=== PATIENT | female | born 1975 | race Caucasian/White ===

== ENCOUNTER 2017-01-21 07:00 | Outpatient (RCR) | payer OTHER, SELFPAY ==
--- NOTE | 2017-01-23 13:56 | HP.PTEVAL_ITS ---
Patient's Visit Information ELIAZAR SORENSEN is a 41 year old F referred to Physical Therapy by Yahaira Banks with a diagnosis of R shoulder tendinosis. Date of Evaluation: 01/21/17 Physical Therapist: Nathan Hernandez - Visit Plan Frequency: 2x /Week Duration: 4-6 Weeks Plan: Start with joint mobilizations, US/DN, PROM stretching. Progressing to consistent HEP. - Subjective Subjective: Pt. is here today for her initial evaluation with diagnosis of R shoulder tendinosis. She is a plesant 42 y.o. female who reports having increased R shoulder pain and stiffness for ~2 months. She denies mechanism of injury, but has progressively become worse. She reports no pain at rest, but difficulty raising R arm over her head making most ADLs and work activiteis difficult. Pt. has not had an imaging done to her arm and reports no N/T in her arm. Pt. denies difficulty iwth activities below the level of her shoulder. 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 She reports overall her mobility in her R shoulder has become wore and worse to a point that is effecting her everyday life. Pt. is hopeful to reduce symptoms and increase mobility in order to get back to all recreational and work activiteis without issues. - Pain R shoulder Pain Intensity (Out of 10): 0 Pain Intensity Range: 0, 6 Comment: pain increases with raising UE over head. - Objective POSTURE: Pt. has slight protracted R scapulea, slight bilateral winging. Pt. has normal AC joint heights and shoulder is in normal positioning. PALPATION: Pt. has no pain to firm palpation throughout subacromial space. Pt. has slight tenderness at sub scap via axilla, but no pain else where. NEUROLOGICAL: Pt. has normal biceps and triceps DTR bilaterally. Pt. has normal sensation to light and sharp touch. ROM: L shoulder- full ROM without increase in symptoms. PROM- R shoulder- flexion 120deg, abd 89deg, ER at 45deg of abd 22deg, IR at 45deg of abd 15deg. AROM- R shoulder- flexion 108deg, abd 78deg, fuctional ER- external auditory meatus with abherrant motions, functional IR- greater trochanter. MMT- L shoulder- 5/5 throughout. L shoulder- flexion 4+/5 NE, abd 4/5 mild increase NW, ext 5/5 NE, ER 4/5 NE, IR 4+/5 NE. Pt. has normal elbow strength 5/5 bilaterally NE. - Special Tests R Shoulder Lift Off Test - Subscapular Tear: Negative R Shoulder Empty Can - SS: Negative R Shoulder Belly Press - SupScap: Negative R Shoulder Neer - Impingement: Positive R Shoulder Hurd Regan - Impingement: Positive R Shoulder Biceps Load Test - Labrum: Negative R Shoulder Apprehension Test - Anterior Instability: Negative R Shoulder Speeds Test - Labrum/Biceps: Negative R Shoulder Shrug Sign - OA/Adhesive Capsulitis: Positive - Goals Goal 1:: Pt. to be I with HEP. Goal Time Frame: 4-6 Weeks Goal 2:: Pt. to have increased R shouler mobility symmetrical to L allowing fo rincreased tolerance to all work and recreational activities. Goal Time Frame: 6-8 Weeks Goal 3:: Pt. to resume all work and recreational activities with out limitation or increase in symptoms. Goal Time Frame: 6-8 Weeks Goal 4:: Pt. to sleep without increase in R shoulder symptoms. Goal Time Frame: 4-6 Weeks Goal 5:: Pt. to have 5/5 R shoulder strength allowing for increase ability to complete all work activities. Goal Time Frame: 6-8 Weeks - Rehabilitation Potential Physical Therapy Diagnosis: Pt. has signs and symptoms consistent with R shoulder adhesive capsulitis. Pt. has + shrug sign and has a consistent capsular pattern loss of motion. Pt. has minimal effects with strength testing, but has significant loss in mobility of her R shoulder. Pt. would benefit from PT to increase ROM, joint mobility to increase tolerance to all recreational and work activities. Rehabilitation Potential: Good - Anticipated Interventions Patient/Client Instruction: Educate patient on: Condition, Plan of Care, Risk Factors, Benefits of Fitness Program For the Purpose of:: To reduce risk of recurrence, To improve safety, To improve health and function, To foster healthy habits, To improve decision making, To facilitate caregiver knowledge, To improve self management, To prevent re-injury, To improve ability to perform tasks related to life management Therapeutic Exercise to Include: Strength training, Power training, Postural training, Flexibilty training, Passive ROM, Active ROM, Scapular Strength/ Stabilization For the Purpose of:: To decrease pain, To increase ROM, To improve nutrient delivery to tissue, To increase oxygenation perfusion, To improve muscle performance and motor function, To improve health of tissue, To decrease soft tissue restriction, To increase flexibility/ROM Manual Therapy Techniques to Include: Mobilization, Passive ROM, Functional dry needling, Soft tissue mobilization For the Purpose of:: To decrease pain, To increase ROM, To improve nutrient delivery to tissue, To improve muscle performance and motor function, To improve health of tissue, To decrease soft tissue restriction, To increase flexibility/ROM Ultrasound (thermal/non thermal): Yes For the Purpose of:: To decrease swelling/inflammation, To increase ROM Thank you for the opportunity to evaluate your patient. For Medicare and Medicare HMO plans, please review the plan of care and approve it. It will need to be FAXED BACK to us at [phone] for Medicare purposes. Please let me know if there are questions or concerns regarding this plan of care. Physician Signature: Date:
--- NOTE | 2017-07-11 14:48 | HP.PTDCNRP_ITS ---
HP - Discharge Summary (1) - Patient Information ELIAZAR SORENSEN was seen in my office for initial evaluation on 01/21/17. The following Plan of Care was established for this patient: Initial Frequency: 2x /Week Initial Duration: 4-6 Weeks - Anticipated Interventions Patient/Client Instruction: Educate patient on: Condition, Plan of Care, Risk Factors, Benefits of Fitness Program For the Purpose of:: To reduce risk of recurrence, To improve safety, To improve health and function, To foster healthy habits, To improve decision making, To facilitate caregiver knowledge, To improve self management, To prevent re-injury, To improve ability to perform tasks related to life management Therapeutic Exercise to Include: Strength training, Power training, Postural training, Flexibilty training, Passive ROM, Active ROM, Scapular Strength/ Stabilization For the Purpose of:: To decrease pain, To increase ROM, To improve nutrient delivery to tissue, To increase oxygenation perfusion, To improve muscle performance and motor function, To improve health of tissue, To decrease soft tissue restriction, To increase flexibility/ROM Manual Therapy Techniques to Include: Mobilization, Passive ROM, Functional dry needling, Soft tissue mobilization For the Purpose of:: To decrease pain, To increase ROM, To improve nutrient delivery to tissue, To improve muscle performance and motor function, To improve health of tissue, To decrease soft tissue restriction, To increase flexibility/ROM Ultrasound (thermal/non thermal): Yes For the Purpose of:: To decrease swelling/inflammation, To increase ROM This patient was last seen in our office 01/21/17. Pertinent comments regarding their Physical therapy will appear below: Pt. was seen for her frozen shoulder. Pt. was seen for 2 visits and was to trial exercises on own. Pt. has not been back to Pt in ~5 months and will be DC from PT at this point in time. At this point I will be discontinuing this patient from physical therapy. I would be happy to see this patient again in the future if found appropriate by the physician. Thank you! Nathan Hernandez
== END 2017-01-21 19:00 | disposition home or self-care (01) ==
LOC: PT 15:50
PROVIDERS: Family Provider Internal Medicine; PCP Internal Medicine; Visit Provider Internal Medicine
DX: M75.01 Adhesive capsulitis of right shoulder (principal)
CPT/HCPCS: 97110; 97161

== ENCOUNTER → 2019-01-02 07:09 | Outpatient (CLI) | payer OTHER, SELFPAY ==
--- NOTE | 2019-01-02 07:12 | BI_ITS ---
MAMMOGRAPHY - BILATERAL SCREENING REASON FOR EXAM: Female, 43 years old. Routine annual screening examination. PERTINENT HISTORY: Sister with breast cancer. TECHNIQUE: Digital bilateral breast duane (3D mammographic acquisition) in the CC and MLO projections. 2-D mediolateral oblique (MLO) and craniocaudad (CC) views of both breasts were obtained. CAD: Full Field Digital Mammography with Computer Added Detection was performed. COMPARISON: Comparison is made with prior examination dated September 26, 2017. FINDINGS: Breast Composition: The breasts are extremely dense, which lowers the sensitivity of mammography. There are no dominant masses or suspicious calcifications. There is a 6.1 mm well-defined nodule in the axillary region of the left breast suggestive of a small lymph node. No other significant abnormalities are identified. There has been no significant change since the prior study. BI/SCREEN MAMM (CAD) W/DUANE BILAT IMPRESSION: Stable bilateral screening mammogram. Yearly follow-up mammogram recommended. (A) ASSESSMENT CATEGORY: BIRADS Category 2: Benign. A letter regarding these results will be sent to the patient by the facility within 30 days. Approximately 10% of breast cancers are not detected by mammography. A normal mammogram should not delay biopsy of a clinically suspicious abnormality. [id number] Electronically Signed: Gibson Farrell, at 8:49 EDT , Service support ,
== END ==
PROVIDERS: Family Provider Internal Medicine; PCP Internal Medicine; Referring Provider Nurse Practitioner Family; Visit Provider Nurse Practitioner Family
DX: Z12.31 Encounter for screening mammogram for malignant neoplasm of breast (principal)
CPT/HCPCS: 77063; 77067

== ENCOUNTER → 2023-01-11 | Outpatient (CLI) | payer OTHER, SELFPAY ==
--- NOTE | 2023-01-11 14:48 | BI_ITS ---
MAMMOGRAPHY - BILATERAL SCREENING REASON FOR EXAM: Female, 47 years old. Routine annual screening examination. PERTINENT HISTORY: Sister with breast cancer. TECHNIQUE: Digital bilateral breast duane (3D mammographic acquisition) in the CC and MLO projections. 2-D mediolateral oblique (MLO) and craniocaudad (CC) views of both breasts were obtained. CAD: Full Field Digital Mammography with Computer Added Detection was performed. COMPARISON: Comparison made with prior study January 02, 2019 and March 29, 2017. FINDINGS: Breast Composition: The breasts are extremely dense, which lowers the sensitivity of mammography. There are no dominant masses or suspicious calcifications. Stable 6.1 mm nodule in the axillary region of the left breast in keeping with her small benign-appearing left. No other significant abnormalities are identified. There has been no significant change since the prior study. BI/SCRN MAMM (CAD)W/DUANE BILAT IMPRESSION: Stable bilateral screening mammogram. Yearly follow-up mammogram recommended. (A) ASSESSMENT CATEGORY: BIRADS Category 2: Benign. A letter regarding these results will be sent to the patient by the facility within 30 days. Approximately 10% of breast cancers are not detected by mammography. A normal mammogram should not delay biopsy of a clinically suspicious abnormality. [id number] Electronically Signed: Gibson Farrell MD at 8:26 EST ,
== END | disposition home or self-care (01) ==
LOC: OPBI 14:46
PROVIDERS: PCP Internal Medicine; Visit Provider Nurse Practitioner Family
DX: Z12.31 Encounter for screening mammogram for malignant neoplasm of breast (principal)
CPT/HCPCS: 77063; 77067

== ENCOUNTER 2023-06-14 16:11 | Emergency (ER) | payer OTHER, SELFPAY ==
[2023-06-14 16:13] VITALS: BP 156/92; PULSE 108; RESP 20; TEMP 36.5; O2SAT 99; BMI 22.8
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
[2023-06-14 17:00] VITALS: BP 125/79; PULSE 86; RESP 17
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
[2023-06-14 18:00] VITALS: BP 144/84; PULSE 93; RESP 16; O2SAT 100
[2023-06-14 19:00] VITALS: BP 133/92; PULSE 114; RESP 22; TEMP 36.8; O2SAT 98
[2023-06-14 19:03] LABS: Hematocrit 41.8 % (37-47); Hemoglobin 13.6 g/dL (12.0-15.0); Mean Corp Hgb Conc 32.5 g/dL (32-36); Mean Corpuscular Hgb 30.2 pg (27.0-32.0); Mean Corpuscular Volume 92.7 fL (81-99); Platelet Count 136 K/mm3 (150-450); RBC Distribution Width CV 11.9 % (11.6-14.6); RBC Distribution Width SD 40.6 fl (35.1-43.9); Red Blood Count 4.51 M/mm3 (4.2-5.4); White Blood Count 7.6 K/mm3 (4.4-11.0)
== END 2023-06-14 19:17 | disposition home or self-care (01) ==
PROVIDERS: Emergency Provider Emergency Medicine; PCP Internal Medicine; Visit Provider Emergency Medicine
DX: S16.1XXA Strain of muscle, fascia and tendon at neck level, initial encounter (principal); S63.502A Unspecified sprain of left wrist, initial encounter; S80.11XA Contusion of right lower leg, initial encounter; Y92.410 Unspecified street and highway as the place of occurrence of the external cause; V43.52XA Car driver injured in collision with other type car in traffic accident, initial encounter
CPT/HCPCS: 72125; 73110; 73590; 85027; 99283; A4216

== ENCOUNTER → 2023-06-23 | Outpatient (CLI) | payer OTHER, SELFPAY ==
--- NOTE | 2023-06-23 14:00 | VDLE_ITS ---
Reason For Study: RLE Swelling RIGHT LEFT GSV is normal. CFV is compressible, spontaneous, phasic, CFV is compressible, spontaneous, phasic, competent, and demonstrates normal competent and demonstrates normal augmentation. augmentation. FV is compressible, spontaneous, phasic, competent and demonstrates normal augmentation. POP V is compressible, spontaneous, phasic, competent and demonstrates normal augmentation. T/P Trunk is compressible. PTV is compressible. RT PerV is compressible. Large Hematoma/Trauma noted throughout lateral rt calf. Procedure This is a venous duplex using B-mode, color flow and spectral Doppler. Exam performed in department. The exam was diagnostic. A preliminary report was called and/or faxed to Dr. Banks office. VL/Venous Duplex US, Unilateral Interpretation Summary Deep veins of the right lower extremity are patent and compressible segmentally . There is no evidence of right lower extremity deep vein thrombosis. The right great sapheno us vein appears patent and compressible segmentally. Right calf hematoma. Ordering Physician: Yahaira Banks Referring Physician: Yahaira Banks Performed By: Daniel Miller, RVT
== END | disposition home or self-care (01) ==
LOC: CVS 13:58
PROVIDERS: PCP Internal Medicine; Referring Provider Internal Medicine; Visit Provider Internal Medicine
DX: M79.89 Other specified soft tissue disorders (principal)
CPT/HCPCS: 93971

== ENCOUNTER 2023-07-09 17:59 | Emergency (ER) | payer OTHER, SELFPAY ==
[2023-07-09 18:00] VITALS: BP 122/82; PULSE 100; RESP 16; TEMP 36.3; O2SAT 101; BMI 22.3
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
[2023-07-09 19:01] VITALS: BP 123/78; PULSE 90; RESP 14; TEMP 36.6; O2SAT 99
== END 2023-07-09 19:06 | disposition home or self-care (01) ==
LOC: ED 18:59
PROVIDERS: Emergency Provider Emergency Medicine; PCP Internal Medicine; Visit Provider Emergency Medicine
DX: S81.801A Unspecified open wound, right lower leg, initial encounter (principal); S80.11XS Contusion of right lower leg, sequela; V99.XXXS Unspecified transport accident, sequela
CPT/HCPCS: 99282

== ENCOUNTER 2023-08-02 08:15 | Outpatient (RCR) | payer OTHER, SELFPAY ==
[2023-07-12 08:10] VITALS: BP 119/81; PULSE 82; RESP 18; TEMP 36.2; BMI 22.2
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
--- NOTE | 2023-07-12 15:01 | WC ---
07/12/2023 RIGHT POST LE
[2023-07-15 08:22] VITALS: BP 104/62; PULSE 83; RESP 18; TEMP 35.7; BMI 22.2
[2023-07-19 08:26] VITALS: BP 118/68; PULSE 84; RESP 18; TEMP 36.2; BMI 22.2
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
[2023-07-22 08:03] VITALS: BP 143/88; PULSE 101; RESP 18; TEMP 35.7; BMI 22.2
[2023-07-27 14:29] VITALS: BP 119/74; PULSE 74; RESP 18; TEMP 36.3; BMI 22.2
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
[2023-07-29 08:35] VITALS: RESP 18; BMI 22.2
[2023-08-02 08:15] VITALS: BP 118/71; PULSE 80; RESP 18; TEMP 35.9; BMI 22.2
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
== END 2023-08-05 23:59 | disposition home or self-care (01) ==
LOC: WC 08:15
PROVIDERS: PCP Internal Medicine; Referring Provider Internal Medicine; Visit Provider Podiatrist
DX: L97.212 Non-pressure chronic ulcer of right calf with fat layer exposed (principal); S80.11XS Contusion of right lower leg, sequela; V99.XXXS Unspecified transport accident, sequela; Z79.899 Other long term (current) drug therapy
CPT/HCPCS: 11042; 11043; 29581; 87070; 87075; 87077; 87186; 87205; 99214; G0463

== ENCOUNTER 2023-08-23 08:00 | Outpatient (RCR) | payer OTHER, SELFPAY ==
[2023-08-06 02:34] VITALS: BP 118/71; PULSE 80; RESP 18; TEMP 35.9; BMI 22.2
[2023-08-09 08:16] VITALS: BP 104/72; PULSE 91; RESP 18; TEMP 36.8; BMI 22.2
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
[2023-08-23 08:00] VITALS: BP 105/74; PULSE 81; RESP 18; BMI 22.2
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
--- NOTE | 2023-08-26 11:38 | WC ---
08/23/2023 RT POST LE
== END 2023-08-25 10:09 | disposition home or self-care (01) ==
LOC: WC 08:00
PROVIDERS: PCP Internal Medicine; Referring Provider Internal Medicine; Visit Provider Podiatrist
DX: L97.212 Non-pressure chronic ulcer of right calf with fat layer exposed (principal); S80.11XD Contusion of right lower leg, subsequent encounter; V99.XXXD Unspecified transport accident, subsequent encounter
CPT/HCPCS: 11042; 99212; G0463